=== PATIENT | female | born 1995 | race Caucasian/White ===

== ENCOUNTER 2018-07-06 16:26 | Emergency (ER) | payer SELFPAY ==
--- NOTE | 2018-07-06 16:58 | PDOC ---
History of Present Illness - General Chief Complaint: Pain Stated Complaint: LOWER ABD PAIN/URINATION Time Seen by Provider: 07/06/18 16:58 - History of Present Illness Initial Comments: 22yo F with PMH of asthma presenting with abdominal pain. Patient reports pain in the suprapubic region that started about 3 days ago. She presents to the ED today because her pain has become worse in severity, rated 10/10 and described as sharp. She has not taken anything at home for her pain. Patient also reports urinary frequency, urgency, and nocturia. Patient has noticed blood on her toilet paper when she wipes but is unsure if this is from her menstrual period which is expected tomorrow. She also reports white, foul-smelling vaginal discharge. Last bowel movement was three days ago which was a normal formed brown stool. No previous history of urinary tract infections or kidney stones. No prior surgeries. Denies fever, chills, chest pain, or shortness of breath. Past History - Past Medical History Allergies/Adverse Reactions: Allergies Allergy/AdvReac Type Severity Reaction Status Date / Time No Known Allergies Allergy Verified 07/06/18 16:27 Home Medications: Ambulatory Orders Sulfamethoxazole/Trimethoprim [Bactrim Ds Tablet] 1 each PO BID 3 Days #6 tablet 07/06/18 COPD: No CHF: No - Suicide/Smoking/Psychosocial Hx Smoking History: Never smoked Have you smoked in the past 12 months: No Information on smoking cessation initiated: No Hx Alcohol Use: No Drug/Substance Use Hx: No Substance Use Type: None Review of Systems - Review of Systems Comments:: Constitutional: no fever, no chills HEENT: no throat pain, no dysphagia Cardiovascular: no chest pain, no palpitations Respiratory: no cough, no shortness of breath Gastrointestinal: +abdominal pain, no nausea, no vomiting, no diarrhea, no constipation Genitourinary: +dysuria, +frequency Musculoskeletal: no myalgia, no arthralgia Skin: no rash, no itching Neurologic: no headache, no dizziness *Physical Exam - Vital Signs Last Vital Signs Temp Pulse Resp BP Pulse Ox 98.2 F 82 20 114/83 100 07/06/18 16:27 07/06/18 16:27 07/06/18 16:27 07/06/18 16:27 07/06/18 16:27 - Physical Exam Comments: General: Awake, alert, and fully oriented, in no acute distress Head: no signs of trauma Eyes: EOMI ENT: Moist mucus membranes Neck: Normal ROM, supple Lungs: Lungs clear, Normal breath sounds Cardio: Regular rhythm, S1 and S2 present Abdomen: Tender to palpation in suprapubic area. No guarding, no rebound, no masses Extremities: Normal range of motion, Distal pulses present SKIN: Warm, Dry, normal turgor Neurologic: Cranial nerves II through XII grossly intact. Normal speech Pelvic: External genitalia without erythema, exudate or discharge. Vaginal vault with white physiologic discharge. Cervix is of normal color without lesion. The os is closed. There is no bleeding noted. Uterus is noted to be of normal size and nontender. No cervical motion tenderness is seen. No masses are palpated. The adnexa are without masses or tenderness. Medical Decision Making - Medical Decision Making 22yo F with PMH of asthma presenting with abdominal pain. -DDX includes but not limited to UTI, pyelonephritis, nephrolithiasis, ovarian torsion, tubo-ovarian abscess -Ordered urine culture -Pelvic exam benign; ordered GC -Bactrim sent to pharmacy Patient's phone number is [phone] 07/06/18 18:18 *DC/Admit/Observation/Transfer Diagnosis at time of Disposition: Urinary tract infection - Discharge Dispostion Disposition: HOME Condition at time of disposition: Stable - Prescriptions Prescriptions: Sulfamethoxazole/Trimethoprim [Bactrim Ds Tablet] 1 each PO BID 3 Days #6 tablet - Referrals - Patient Instructions Printed Discharge Instructions: DI for Urinary Tract Infection (UTI) Additional Instructions: You came to the ED for abdominal pain. Your urinalysis showed that you have a urinary tract infection. Prescription sent to your pharmacy, [facility] at [address] [place] [address] Keep hydrated by drinking plenty of fluids. RETURN if: you develop high fevers, chills, persistent vomiting, stop urinating , or any new or concerning symptoms. - Post Discharge Activity
[2018-07-06 17:23] LABS: HCG,QUALITATIVE URINE Negative
[2018-07-06 17:24] VITALS: BP 114/83; PULSE 82; TEMP 98.2; BMI 21.2
[2018-07-06 17:33] LABS: PH,URINE 5.5 (4.5-8); URINE APPEARANCE Cloudy; URINE BILIRUBIN Negative (NEGATIVE); URINE COLOR Yellow; URINE GLUCOSE (UA) Negative (NEGATIVE); URINE KETONE 2+ (NEGATIVE); URINE LEUK ESTERASE 2+ (NEGATIVE); URINE NITRITE Positive (NEGATIVE); URINE PROTEIN 2+ (NEGATIVE); URINE UROBILINOGEN 0.2 (0.2-1.0)
[2018-07-06 17:55] LABS: EPI CELLS 1+ /HPF; URINE BACTERIA 1+ /hpf (NEGATIVE); URINE WBC 40-60 (0-5)
--- NOTE | 2018-07-06 18:35 | PDOC ---
Attending Attestation - Resident Resident Name: Penny Cadena - HPI HPI: 07/06/18 18:32 Suprapubic pain, urgency, frequency, and hematuria. No fever or back pain. No history of UTIs. - Physicial Exam PE: 07/06/18 18:33 Afebrile, normal vital signs Mild suprapubic tenderness to deep palpation without guarding or rebound. No right lower quadrant or left lower quadrant tenderness. Bowel sounds normal. Nondistended. Pelvic exam performed by resident. No CMT. No adnexal masses or tenderness. Normal-appearing white discharge. No lesions. - Medical Decision Making 07/06/18 18:34 Assessment: UTI, cystitis Plan: Antibiotics and primary care follow-up. Urine culture pending.
== END 2018-07-06 18:59 | disposition home or self-care (01) ==
LOC: FER 16:26
DX: N39.0 Urinary tract infection, site not specified (principal)
CPT/HCPCS: 36415; 81003; 81015; 84703; 87086; 87186; 87491; 87591; 99282-25